=== PATIENT | female | born 1980 | race Hispanic/Latino ===

== ENCOUNTER 2017-03-14 00:29 | Emergency (ER) | payer SELFPAY ==
[~2017-03-14] VITALS: Ht 157.5 cm; Wt 65.8 kg
[2017-03-14 01:10] LABS: BILIRUBIN,URINE NEGATIVE (NEGATIVE); KETONES,URINE 3+ (NEGATIVE); LEUKOCYTE ESTERASE ,URINE 1+ (NEGATIVE); NITRITE,URINE NEGATIVE (NEGATIVE); PH,URINE 7 (5-9); PROTEIN,URINE 2+ (NEGATIVE); UROBILINOGEN,URINE 1 MG/DL (NORMAL)
[2017-03-14 01:17] LABS: WBC,URINE 25-50 /HPF
[2017-03-14] MEDS ORDERED: NS IV 1000 ML 1,000 ML IV ONE ×2 (01:17→02:19)
[2017-03-14 01:27] LABS: BASOPHILS # (AUTO) 0.1 10^3/uL (0.0-0.1); BASOPHILS % (AUTO) 0 % (0-10); EOSINOPHILS # (AUTO) 0.1 10^3/uL (0.0-0.3); EOSINOPHILS % (AUTO) 1 % (0-10); LYMPHOCYTES # (AUTO) 2.9 X 10^3 (1.0-4.0); LYMPHOCYTES % (AUTO) 16 % (12-44); MEAN CORPUSCULAR HEMOGLOBIN 30 PG (25-34); MEAN CORPUSCULAR HGB CONC 36 G/DL (32-36); MEAN CORPUSCULAR VOLUME 85 FL (80-99); MEAN PLATELET VOLUME 11.1 FL (7.4-10.4); MONOCYTES % (AUTO) 6 % (0-12); NEUTROPHILS # (AUTO) 13.7 X 10^3 (1.8-7.8); NEUTROPHILS % (AUTO) 77 % (42-75); PLATELET COUNT 308 10^3/uL (130-400); RED BLOOD COUNT 4.96 10^6/uL (4.35-5.85); RED CELL DISTRIBUTION WIDTH 12.5 % (10.0-14.5); WHITE BLOOD COUNT 17.8 10^3/uL (4.3-11.0)
[2017-03-14] MEDS ORDERED: ONDANSETRON 4 MG/2 ML (SDV) Z0FRAN IVP ONE ×2 (01:30→02:15)
[2017-03-14 01:46] LABS: BAND NEUTROPHILS 0 %; BASOPHILS % (MANUAL) 0 %; EOSINOPHILS % (MANUAL) 1 %; LYMPHOCYTES % (MANUAL) 22 %; NEUTROPHILS % (MANUAL) 74 %
[2017-03-14 01:47] LABS: ALANINE AMINOTRANSFERASE 16 U/L (0-55); ALBUMIN 4.8 GM/DL (3.2-4.5); AMYLASE 33 U/L (25-125); ANION GAP 14 MMOL/L (5-14); ASPARTATE AMINO TRANSFERASE 12 U/L (5-34); BILIRUBIN,TOTAL 0.6 MG/DL (0.1-1.0); BLOOD UREA NITROGEN 11 MG/DL (7-18); BUN/CREATININE RATIO 13; CALCIUM 9.6 MG/DL (8.5-10.1); CARBON DIOXIDE 25 MMOL/L (21-32); CHLORIDE 98 MMOL/L (98-107); CREATININE SERUM 0.84 MG/DL (0.60-1.30); GFR ESTIMATED > 60; GLUCOSE 297 MG/DL (70-105); LIPASE 24 U/L (8-78); POTASSIUM 3.5 MMOL/L (3.6-5.0); SODIUM 137 MMOL/L (135-145); TOTAL PROTEIN 8.2 GM/DL (6.4-8.2)
[2017-03-14] MEDS ORDERED: cefTRIAXone INJECTION 1,000 MG in NS (IVPB) 50 ML IV ONE (02:00)
[2017-03-14] MEDS ORDERED: cefTRIAXone 1 GM (ROCEPHIN) VIAL ONE (02:05)
[2017-03-14] MEDS ORDERED: NS (IVPB) 50 ML ONE (02:06)
[2017-03-14] MEDS ORDERED: NITR-65 PO (02:11)
[2017-03-14] MEDS ORDERED: ONDA4TAB8 PO (02:11)
[2017-03-14] MEDS ORDERED: NAPR500T4 PO (02:11)
--- NOTE | 2017-03-14 02:12 | ED General ---
General Chief Complaint: Abdominal/GI Problems Stated Complaint: VOMITING,KIDNEY PAIN,BP 138/108,DIABETES Nursing Triage Note: PATIENT STATES THAT HE HAS BEEN HAVING PAIN ON RIGHT RIGHT FLANK AREA STARTING TODAY. SHE STATES THAT SHE IS ALSO HAVING HIGH BLOOD PRESSURE AND THAT SHE IS AN INSULIN DEPENDENT DIABETIC AND HAS NOT TAKEN INSULIN OR METFORMIN IN 3-4 MONTHS. Nursing Sepsis Screen: No Definite Risk Source of Information: Patient History of Present Illness Time Seen by Provider: 00:45 Initial Comments PT ARRIVES VIA POV WITH 2 OF HER ROOM MATES--ONE OF HER ROOM MATES IS ALSO BEING SEEN FOR UNRELATED PROBLEM PT STATES IS DIABETIC, AND HAS NOT TAKEN HER INSULIN OR METFORMIN SINCE SHE MOVED HERE FROM [place] 4 MONTHS AGO--STATES SHE "FORGOT TO BRING IT WITH HER" PT HAS NOT MADE ANY ATTEMPT TO ESTABLISH WITH A LOCAL DRMargueirte OR TO GET HER PRESCRIPTIONS REFILLED BY HER DR. IN [place] OR ANYONE HERE, AT ANY TIME. PT NEVER CHECKS HER BLOOD SUGAR AND DOES NOT OWN A GLUCOMETER C/O RIGHT FLANK PAIN C/O NAUSEA/VOMITING C/O URINARY BURNING, URGENCY, FREQUENCY, SMALL AMOUNTS ALL THESE SYMPTOMS BEGAN AROUND 2300 TONIGHT STATES SHE HAS THESE EXACT SAME SYMPTOMS EVERY MONTH, RIGHT BEFORE SHE STARTS HER PERIOD, AND IS DUE TO START HER PERIOD TODAY--LMP 02/12/17. NORMAL. NO CONTROL. HAS NOT TAKEN ANYTHING FOR PAIN PCP: NONE. STATES SHE WILL FOLLOW UP WITH [facility] THAT IS WHERE HER ROOM MATES GO Allergies and Home Medications Allergies Coded Allergies: No Known Drug Allergies (Unverified , 03/14/17) Home Medications Naproxen 500 Mg Tablet, 500 MG PO BID, #20 Prescribed by: LÓPEZ CRUZ on 03/14/17 0211 Nitrofurantoin Monohyd/M-Cryst 100 Mg Capsule, 100 MG PO BID, #20 Prescribed by: LÓPEZ CRUZ on 03/14/17 0211 Ondansetron 4 Mg Tab.rapdis, 4 MG PO Q4H, #10 Prescribed by: LÓPEZ CRUZ on 03/14/17 0211 Constitutional: no symptoms reported Respiratory: no symptoms reported Cardiovascular: no symptoms reported Gastrointestinal: No abdominal pain, nausea, vomiting Genitourinary: see HPI, dysuria, frequency, hematuria : No LMP: Feb 12, 2017 Musculoskeletal: see HPI, back pain Skin: no symptoms reported Psychiatric/Neurological: No Symptoms Reported Hematologic/Lymphatic: No Symptoms Reported Immunological/Allergic: no symptoms reported Past Oiqcyxk-[id number]-Hbnsqn Hx Patient Social History Alcohol Use: Occasionally Uses Recreational Drug Use: No Smoking Status: Current Everyday Smoker (< 1 PPD) Type Used: Cigarettes 2nd Hand Smoke Exposure: Yes Recent Foreign Travel: No Contact w/Someone Who Travel: No Recent Infectious Disease Expo: No Recent Hopitalizations: No Physical Abuse: No Sexual Abuse: No Seasonal Allergies Seasonal Allergies: No Surgeries History of Surgeries: Yes Surgeries: Adenoidectomy, Tonsillectomy Respiratory History of Respiratory Disorde: No Cardiovascular History of Cardiac Disorders: Yes Cardiac Disorders: High Cholesterol Neurological History of Neurological Disord: No Reproductive System : No Last Menstrual Period: Feb 12, 2017 Female Reproductive Disorders: Denies Genitourinary History of Genitourinary Disor: Yes Genitourinary Disorders: UTI-Chronic Gastrointestinal History of Gastrointestinal Di: No Musculoskeletal History of Musculoskeletal Dis: No Endocrine History of Endocrine Disorders: Yes (IS SUPPOSED TO BE ON INSULIN AND METFORMIN. DX WITH DIABETES AROUND 2011) Endocrine Disorders: Diabetes, Insulin dep HEENT History of HEENT Disorders: No Cancer History of Cancer: No Psychosocial History of Psychiatric Problem: No Suicide Risk Score: 0 Integumentary History of Skin or Integumenta: No Blood Transfusions History of Blood Disorders: No Physical Exam Vital Signs Vital Sign - Last 12Hours 03/14/17 00:45 Temp 97.8 Pulse 123 Resp 20 B/P (MAP) 149/108 (122) Pulse Ox 98 O2 Delivery Room Air Capillary Refill : Less Than 3 Seconds General Appearance: No Apparent Distress, WD/WN HEENT: PERRL/EOMI Neck: Normal Inspection Respiratory: Normal Breath Sounds, No Accessory Muscle Use, No Respiratory Distress Cardiovascular: Regular Rate, Rhythm, No Edema, No Murmur, Normal Peripheral Pulses Gastrointestinal: Normal Bowel Sounds, No Organomegaly, No Pulsatile Mass, Soft , Tenderness (RIGHT FLANK) Back: No Vertebral Tenderness, CVA Tenderness (R) Extremity: Normal Inspection, Normal Range of Motion, Non Tender, No Calf Tenderness, No Pedal Edema Neurologic/Psychiatric: Alert, Oriented x3, No Motor/Sensory Deficits, Normal Mood/Affect, cancer genetic counselor II-XII Norm as Tested Skin: Normal Color, Warm/Dry, Tattoos/Piercings (MULTIPLE TATTOOS AND PIERCINGS ) Progress/Results/Core Measures Suspected Sepsis Recent Fever Within 48 Hours: No Infection Criteria Present: None New/Unexplained Altered Menta: No Sepsis Screen: No Definite Risk Sepsis Diagnosis: SIRS Temperature:97.8 Pulse: 123 Respiratory Rate: 20 Laboratory Tests 03/14/17 01:15: White Blood Count 17.8H Blood Pressure 149 /108 Mean: 122 Laboratory Tests 03/14/17 01:15: Creatinine 0.84, Platelet Count 308, Total Bilirubin 0.6 Results/Orders Lab Results Laboratory Tests Test 03/14/17 00:54 03/14/17 01:04 03/14/17 01:15 03/14/17 02:18 Range/Units Glucometer 284 H 284 H 70-110 MG/DL Urine Color YELLOW Urine Clarity SLIGHTLY CLOUDY Urine pH 7 5-9 Urine Specific [place] 1.010 L 1.016-1.022 Urine Protein 2+ H NEGATIVE Urine Glucose (UA) 4+ H NEGATIVE Urine Ketones 3+ H NEGATIVE Urine Nitrite NEGATIVE NEGATIVE Urine Bilirubin NEGATIVE NEGATIVE Urine Urobilinogen 1 NORMAL MG/DL Urine Leukocyte Esterase 1+ H NEGATIVE Urine RBC (Auto) 4+ H NEGATIVE Urine RBC 2-5 H /HPF Urine WBC 25-50 H /HPF Urine Squamous Epithelial Cells 5-10 /HPF Urine Crystals NONE /LPF Urine Bacteria MODERATE H /HPF Urine Casts NONE /LPF Urine Mucus NEGATIVE /LPF Urine Culture Indicated YES Urine Opiates Screen NEGATIVE NEGATIVE Urine Oxycodone Screen NEGATIVE NEGATIVE Urine Methadone Screen NEGATIVE NEGATIVE Urine Propoxyphene Screen NEGATIVE NEGATIVE Urine Barbiturates Screen NEGATIVE NEGATIVE Ur Tricyclic Antidepressants Screen NEGATIVE NEGATIVE Urine Phencyclidine Screen NEGATIVE NEGATIVE Urine Amphetamines Screen NEGATIVE NEGATIVE Urine Methamphetamines Screen NEGATIVE NEGATIVE Urine Benzodiazepines Screen NEGATIVE NEGATIVE Urine Cocaine Screen NEGATIVE NEGATIVE Urine Cannabinoids Screen NEGATIVE NEGATIVE White Blood Count 17.8 H 4.3-11.0 10^3/uL Red Blood Count 4.96 4.35-5.85 10^6/uL Hemoglobin 15.0 11.5-16.0 G/DL Hematocrit 42 35-52 % Mean Corpuscular Volume 85 80-99 FL Mean Corpuscular Hemoglobin 30 25-34 PG Mean Corpuscular Hemoglobin Concent 36 32-36 G/DL Red Cell Distribution Width 12.5 10.0-14.5 % Platelet Count 308 130-400 10^3/uL Mean Platelet Volume 11.1 H 7.4-10.4 FL Neutrophils (%) (Auto) 77 H 42-75 % Lymphocytes (%) (Auto) 16 12-44 % Monocytes (%) (Auto) 6 0-12 % Eosinophils (%) (Auto) 1 0-10 % Basophils (%) (Auto) 0 0-10 % Neutrophils # (Auto) 13.7 H 1.8-7.8 X 10^3 Lymphocytes # (Auto) 2.9 1.0-4.0 X 10^3 Monocytes # (Auto) 1.0 0.0-1.0 X 10^3 Eosinophils # (Auto) 0.1 0.0-0.3 10^3/uL Basophils # (Auto) 0.1 0.0-0.1 10^3/uL Neutrophils % (Manual) 74 % Lymphocytes % (Manual) 22 % Monocytes % (Manual) 3 % Eosinophils % (Manual) 1 % Basophils % (Manual) 0 % Band Neutrophils 0 % Smudge Cells SLIGHT Toxic Granulation 1+ Sodium Level 137 135-145 MMOL/L Potassium Level 3.5 L 3.6-5.0 MMOL/L Chloride Level 98 98-107 MMOL/L Carbon Dioxide Level 25 21-32 MMOL/L Anion Gap 14 5-14 MMOL/L Blood Urea Nitrogen 11 7-18 MG/DL Creatinine 0.84 0.60-1.30 MG/DL Estimat Glomerular Filtration Rate > 60 BUN/Creatinine Ratio 13 Glucose Level 297 H 70-105 MG/DL Calcium Level 9.6 8.5-10.1 MG/DL Total Bilirubin 0.6 0.1-1.0 MG/DL Aspartate Amino Transf (AST/SGOT) 12 5-34 U/L Alanine Aminotransferase (ALT/SGPT) 16 0-55 U/L Alkaline Phosphatase 98 40-136 U/L Total Protein 8.2 6.4-8.2 GM/DL Albumin 4.8 H 3.2-4.5 GM/DL Amylase Level 33 25-125 U/L Lipase 24 8-78 U/L Test 03/14/17 03:11 Range/Units Glucometer 142 H 70-110 MG/DL My Orders Orders - LÓPEZ CRUZ DO Accucheck Stat ONCE (03/14/17 00:53) Saline Lock/Iv-Start (03/14/17 00:53) Urine Bedside (03/14/17 00:53) Amylase (03/14/17 00:53) Cbc With Automated Diff (03/14/17 00:53) Comprehensive Metabolic Panel (03/14/17 00:53) Drug Screen Stat (Urine) (03/14/17 00:53) Lipase (03/14/17 00:53) Ua Culture If Indicated (03/14/17 00:53) Saline Lock/Iv-Start (03/14/17 00:53) Ondansetron Injection (Zofran Injectio (03/14/17 01:30) Saline Lock/Iv-Start (03/14/17 01:17) Ns Iv 1000 Ml (Sodium Chloride 0.9%) (03/14/17 01:17) Urine Culture (03/14/17 01:04) Manual Differential (03/14/17 01:15) Ceftriaxone Injection (Rocephin Injectio (03/14/17 02:00) Accucheck Stat ONCE (03/14/17 02:06) Ceftriaxone Injection (Rocephin Injectio (03/14/17 02:05) Ns (Ivpb) (Sodium Chloride 0.9% Ivpb Bag (03/14/17 02:06) Ondansetron Injection (Zofran Injectio (03/14/17 02:15) Saline Lock/Iv-Start (03/14/17 02:19) Ns Iv 1000 Ml (Sodium Chloride 0.9%) (03/14/17 02:19) Insulin (Regular) Human (Humulin R (Per (03/14/17 02:30) Insulin (Regular) Human (Humulin R (Per (03/14/17 02:20) Ketorolac Injection (Toradol Injection) (03/14/17 02:30) Ct Abd/Pelvis Wo(Kidney Stone) (03/14/17 02:27) Abdomen/Kub 1view (03/14/17 02:27) Ketorolac Injection (Toradol Injection) (03/14/17 02:27) Accucheck Stat ONCE (03/14/17 03:09) Medications Given in ED Current Medications Medications Dose Ordered Sig/Dave Route Start Time Stop Time Status Last Admin Dose Admin Ceftriaxone Sodium 1000 mg/ Sodium Chloride 50 ml @ 100 mls/hr ONCE ONCE IV 03/14/17 02:00 03/14/17 02:29 UNV 12/14/17 02:11 100 MLS/HR Insulin Human Regular 10 unit ONCE ONCE IV 03/14/17 02:30 03/14/17 02:31 DC 03/14/17 02:23 10 UNIT Ketorolac Tromethamine 30 mg ONCE ONCE IVP 03/14/17 02:30 03/14/17 02:38 DC 03/14/17 02:30 30 MG Ondansetron HCl 4 mg ONCE ONCE IVP 03/14/17 01:30 03/14/17 01:31 DC 03/14/17 01:21 4 MG Ondansetron HCl 4 mg ONCE ONCE IVP 03/14/17 02:15 03/14/17 02:16 UNV 03/14/17 02:17 4 MG Sodium Chloride 1,000 ml @ 0 mls/hr Q0M ONCE IV 03/14/17 01:17 03/14/17 01:18 DC 03/14/17 01:21 0 MLS/HR Sodium Chloride 1,000 ml @ 0 mls/hr Q0M ONCE IV 03/14/17 02:19 03/14/17 02:20 DC 03/14/17 02:23 0 MLS/HR Vital Signs/I&O Vital Sign - Last 12Hours 03/14/17 00:45 Temp 97.8 Pulse 123 Resp 20 B/P (MAP) 149/108 (122) Pulse Ox 98 O2 Delivery Room Air Capillary Refill : Less Than 3 Seconds Blood Pressure Mean: 122 Point of Care Testing Finger Stick Blood Glucose: 283 Urine -Bedside: Negative Blood Glucose Action Taken: PHYSICIAN NOTIFIED Progress Note : Progress Note REPEAT ACCUCHECK AFTER FIRST LITER OF FLUIDS--284 ADDITIONAL LITER OF SALINE + INSULIN GIVEN ACCUCHECK 142 PRIOR TO DISMISSAL NAUSEA AND PAIN RESOLVED WITH ZOFRAN + TORADOL--PT FEELING MUCH BETTER Diagnostic Imaging Comments KUB--NO ACUTE PROCESS, PENDING RADIOLOGIST REVIEW CT ABDOMEN/PELVIS--NO ACUTE PROCESS, NO STONES, 3.2 CM LEFT ADNEXAL CYST--PER [facility] VIA FAX @ [id number] Reviewed: Reviewed by Me Departure Impression Impression: Primary Impression: Urinary tract infection Additional Impressions: Uncontrolled diabetes mellitus Non-compliance Nausea and vomiting Disposition: 01 HOME, SELF-CARE Condition: Improved Departure-Patient Inst. Referrals: NO,LOCAL PHYSICIAN (PCP/Family) Primary Care Physician Patient Instructions: DIABETES, Diabetes Diet , Nausea and Vomiting, Adult (DC) , Urinary Tract Infection, Adult (DC) Add. Discharge Instructions: CLEAR LIQUIDS--WATER, BROTH, JELLO, GATORADE WHEN YOUR NAUSEA IS GONE, ADD BRATS DIET TO CLEAR LIQUIDS--BANANAS, RICE, APPLESAUCE, TOAST, SALTINES FOLLOW UP WITH OF ANA LAURA THIS WEEK FOR FURTHER CARE-LIST PROVIDED LOTS OF CLEAR LIQUIDS All discharge instructions reviewed with patient and/or family. Voiced understanding. Scripts Ondansetron (Zofran Odt) 4 Mg Tab.rapdis 4 MG PO Q4H for Nausea/Vomiting, #10 TAB Prov: LÓPEZ CRUZ DO 03/14/17 Naproxen (Naproxen) 500 Mg Tablet 500 MG PO BID, #20 TAB Prov: LÓPEZ CRUZ DO 03/14/17 Nitrofurantoin Monohyd/M-Cryst (Macrobid 100 mg Capsule) 100 Mg Capsule 100 MG PO BID, #20 CAP Prov: LÓPEZ CRUZ DO 03/14/17 Work/School Note: Local Medical Staff Listing LÓPEZ CRUZ DO Mar 14, 2017 02:12
[2017-03-14] MEDS ORDERED: inSUlin (REGULAR) HUMAN 1 UNIT/0.01 ML (CHARGE PER UNIT) ONE (02:20)
[2017-03-14] MEDS ORDERED: KETOROLAC 30 MG/ML VIAL IVP STA (02:27)
[2017-03-14] MEDS ORDERED: inSUlin (REGULAR) HUMAN 1 UNIT/0.01 ML (CHARGE PER UNIT) IV ONE (02:30)
[2017-03-14] MEDS ORDERED: KETOROLAC 30 MG/ML VIAL IVP ONE (02:30)
[2017-03-14 03:33] VITALS: BP 149/108
--- NOTE | 2017-03-14 06:44 | Diagnostic Imaging Report ---
Supine abdomen at 304 hours. INDICATION: Abdominal pain. There are no prior studies available for comparison. FINDINGS: There is some gas in both large and small bowel in a nonspecific fashion. There is no evidence for bowel obstruction. There is a moderate amount of fecal material within the colon. There is no mass or organomegaly or pathological calcification evident. The osseous structures are intact. IMPRESSION: 1. The bowel gas pattern is nonspecific. There is no acute abnormality identified. 2. Reportedly, CT of the abdomen and pelvis is pending for further study. Dictated by: Dictated on workstation # [id number]
--- NOTE | 2017-03-14 07:44 | Diagnostic Imaging Report ---
PROCEDURE: CT urinary tract, rule out kidney stone. TECHNIQUE: Multiple contiguous axial images were obtained through the abdomen and pelvis without the use of intravenous contrast. INDICATION: Right flank pain. There are no prior studies available for comparison. There is no evidence for nephrolithiasis or urolithiasis. However, the right renal pelvis and the right ureter do seem somewhat prominent compared to the left. There is also mild distortion of the periureteral fat. This appearance may be related to mild partial obstruction of the right collecting system due to the recent passage of a calculus. Clinical followup is recommended. The urinary bladder is grossly unremarkable. The appendix was visualized and is not abnormally thickened. The uterus does not appear to be enlarged. There is a 3.6-cm rounded area of low-density in the left adnexa. I suspect that this is a left ovarian cyst. If further evaluation of this finding is desired, then ultrasound would be recommended. There is diverticulosis of the sigmoid and descending colon, but there is no sign of acute diverticulitis. The liver, spleen, pancreas, adrenals, gallbladder, aorta, and inferior vena cava show no sign of an acute abnormality. The stomach is not well distended and consequently difficult to assess. The lung bases are clear. The bone windows show no sign of a fracture or of a destructive lesion. IMPRESSION: 1. There is no evidence for nephrolithiasis or urolithiasis; however, there does seem to be mild dilatation of the right ureter and the right renal pelvis. This appearance could be related to the recent passage of a small calculus. Clinical followup is recommended. 2. There is no acute abnormality of the abdomen or pelvis noted otherwise. 3. There does appear to be a 3.6-cm cyst associated with the left ovary. If further imaging is desired, then ultrasound would be recommended. Dictated by: Dictated on workstation # [id number]
== END 2017-03-14 03:33 | disposition home or self-care (01) ==
LOC: ER 00:33
DX: N39.0 Urinary tract infection, site not specified (principal); E11.9 Type 2 diabetes mellitus without complications; R11.2 Nausea with vomiting, unspecified; E78.00 Pure hypercholesterolemia, unspecified; F17.210 Nicotine dependence, cigarettes, uncomplicated; Z87.440 Personal history of urinary (tract) infections; Z90.89 Acquired absence of other organs; Z91.14 Patient's other noncompliance with medication regimen
CPT/HCPCS: 36415; 74000; 74176; 80053; 80306; 81000; 82150; 82962; 83690; 84703; 85007; 85027; 87077; 87088; 96374; 96375; 96376